=== PATIENT | male | born 1965 | race African-American/Black ===

== ENCOUNTER 2017-04-26 07:39 | Emergency (ER) | payer MEDICAID ==
[~2017-04-26] VITALS: Ht 193 cm; Wt 90.7 kg
[~2017-04-26 07:39] MED LIST: CEPHALEXIN500 MG ORAL; COUMADIN6 MG ORAL; LEVOFLOXACIN500 MG ORAL; METFORMIN HCL500 M1 ORAL
[2017-04-26] MEDS ORDERED: KENALOG 0.025%15 GM APPLIC (08:04)
[2017-04-26] MEDS ORDERED: BENADRYL ALLERG25 M1 PO (08:04)
[2017-04-26 08:15] VITALS: BP 140/88
--- NOTE | 2017-04-26 08:18 | Emergency Room Report ---
History of Present Illness General Chief Complaint: Skin Rash/Abscess Source: Patient Present Illness HPI 51-year-old male with no significant past medical history presenting with rash to left-sided back for 2-3 days. Patient states he noticed a rash 2-3 days ago has been very itchy and he has been scratching. Patient denies any new detergent, denies any mosquito bites or insect bites, denies any new clothing or material applied and his back. Patient states that he has had this rash before on his arm a long time ago. Patient denies any fever or chills. Denies any nausea or vomiting. Denies any throat swelling or shortness of breath. Allergies: Coded Allergies: No Known Allergies (Unverified , 04/26/17) Patient History Past Medical History: see triage record Past Surgical History: none Pertinent Family History: none Reviewed Nursing Documentation: PMH: Agreed, PSxH: Agreed Nursing Documentation-PMH Hx Cardiac Problems: Yes Hx Hypertension: Yes Hx Diabetes: Yes Hx Cancer: No Hx Gastrointestinal Problems: No Hx Neurological Problems: Yes - History of DVT Review of Systems All Other Systems: negative except mentioned in HPI Physical Exam Vital Signs Date Time Temp Pulse Resp B/P (MAP) Pulse Ox O2 Delivery O2 Flow Rate FiO2 04/26/17 07:52 98.2 88 16 146/87 95 Room Air Sp02 EP Interpretation: reviewed, normal General Appearance: normal inspection, well appearing, no apparent distress, alert, GCS 15, non-toxic Head: normocephalic, atraumatic Eyes: bilateral eye normal inspection, bilateral eye PERRL, bilateral eye EOMI ENT: normal ENT inspection, normal pharynx, normal voice, moist mucus membranes Neck: normal inspection, full range of motion, supple Respiratory: normal inspection, lungs clear, normal breath sounds, no respiratory distress, no retraction, no wheezing, speaking full sentences, chest symmetrical Cardiovascular #1: normal inspection, regular rate, rhythm, no edema, normal capillary refill Cardiovascular #2: 2+ radial (R), 2+ radial (L) Gastrointestinal: normal inspection, non tender, soft, non-distended, no guarding Genitourinary: no CVA tenderness Musculoskeletal: normal inspection, back normal, normal range of motion, non- tender Neurologic: normal inspection, alert, oriented x3, responsive, motor strength/ tone normal, sensory intact, normal gait, speech normal Psychiatric: normal inspection, judgement/insight normal, memory normal Skin: well hydrated, normal turgor, other - Left back, with few more than 5 x 5 cm raised dark blanching rash, with excoriation renteria. Mildly tender to palpation. No purulent drainage Medical Decision Making Diagnostic Impression: Primary Impression: Contact dermatitis ER Course 51 yo M with rash DDX: Appears to be benign dermatitis such as eczema or contact dermatitis Plan: Benadryl offered in the emergency room however patient is driving Disposition: Patient is to be discharged to home. Prescriptions given are steroid ointment and Benadryl Patient is instructed to follow up with their primary care doctor within one week for recheck of rash Strict return precautions discussed with patient such as fever, chills, worsening/severe rash, shortness of breath, throat swelling, nausea, vomiting, which may indicate severe illness. Patient verbalizes understanding and agrees with plan. Please note that this Emergency Department Report was dictated using [employer] integrity technology software, occasionally this can lead to erroneous entry secondary to interpretation by the dictation equipment Last Vital Signs Date Time Temp Pulse Resp B/P (MAP) Pulse Ox O2 Delivery O2 Flow Rate FiO2 04/26/17 07:52 98.2 88 16 146/87 95 Room Air Disposition: HOME, SELF-CARE Condition: Stable Scripts Triamcinolone Acet (Triamcinolone Acetonide) 15 Gm Cream..g. 15 GM APPLIC DAILY for 7 Days, #1 TUBE 0 Refills Prov: Ceasar Arellano M.D. 04/26/17 Diphenhydramine Hcl (BENADRYL ALLERGY) 25 Mg Tablet 25 MG PO Q6HR Y for Itching for 7 Days, #28 TAB 0 Refills Prov: Ceasar Arellano M.D. 04/26/17 Referrals: NOT CHOSEN [facility]/,REFERRING (PCP) Patient Instructions: Contact Dermatitis, [id number] Additional Instructions: Please follow up with your primary care doctor within 3 days. Please take your prescription medication as directed. Please come back to the emergency room if you are having worsening rash, throat swelling shortness of breath, or nausea or vomiting Ceasar Arellano M.D. Apr 26, 2017 08:18
== END 2017-04-26 08:15 | disposition home or self-care (01) ==
LOC: EMR 08:00
DX: L25.9 Unspecified contact dermatitis, unspecified cause (principal); I10 Essential (primary) hypertension; E11.9 Type 2 diabetes mellitus without complications
CPT/HCPCS: 99284

== ENCOUNTER 2017-04-30 07:29 | Emergency (ER) | payer MEDICAID ==
[~2017-04-30] VITALS: Ht 193 cm; Wt 90.7 kg
[~2017-04-30 07:29] MED LIST changes: +BENADRYL ALLERG25 M1 PO; +KENALOG 0.025%15 GM APPLIC
[2017-04-30 07:42] VITALS: BP 131/77
[2017-04-30] MEDS ORDERED: KEFLEX500 MG ORAL (07:51)
[2017-04-30] MEDS ORDERED: ACYCLOVIR400 MG ORAL (07:51)
--- NOTE | 2017-04-30 07:55 | Emergency Room Report ---
History of Present Illness General Chief Complaint: Skin Rash/Abscess Source: Patient Present Illness HPI Patient presents with continued rash on the left back area patient was here about 7 days ago was put on antifungal medication Reports of the discomfort still persists And the rash has not fully gone away He reports that the pain has improved significantly Denies any discharge Denies any fevers or chills The area is still somewhat puritic Allergies: Coded Allergies: No Known Allergies (Unverified , 04/26/17) Patient History Past Medical History: see triage record Pertinent Family History: none Reviewed Nursing Documentation: PMH: Agreed, PSxH: Agreed Nursing Documentation-PMH Hx Cardiac Problems: Yes Hx Hypertension: Yes Hx Diabetes: Yes Hx Cancer: No Hx Gastrointestinal Problems: No Hx Neurological Problems: Yes - History of DVT Review of Systems All Other Systems: negative except mentioned in HPI Physical Exam Vital Signs Date Time Temp Pulse Resp B/P (MAP) Pulse Ox O2 Delivery O2 Flow Rate FiO2 04/30/17 07:33 98.1 81 20 131/77 96 Room Air Sp02 EP Interpretation: reviewed, normal General Appearance: well appearing, no apparent distress Head: normocephalic, atraumatic Eyes: bilateral eye PERRL, bilateral eye EOMI ENT: hearing grossly normal, normal pharynx, TMs + canals normal, uvula midline Neck: full range of motion, supple, no meningismus, no bony tend Respiratory: chest non-tender, lungs clear, normal breath sounds Cardiovascular #1: regular rate, rhythm, no edema Gastrointestinal: soft, no mass Musculoskeletal: normal inspection Neurologic: alert, oriented x3, responsive, image assembler III-XII nml as tested Skin: other - The area of the left back area, essentially just lateral to the scapula region, in the latissimus muscle region, there are several areas of what he to be local irritation such as possible insect bite, with mild surrounding erythema, no obvious fluctuance, there is somewhat of a dermatomal pattern to this as well, raising concern of possible shingles the area stopped about the midaxillary region and does not wraparound to the chest area Lymphatic: no adenopathy Medical Decision Making Diagnostic Impression: Primary Impression: Rash and other nonspecific skin eruption Additional Impressions: insect bite zoster ER Course Clinical findings raise questions of possible insect bite with local reaction, possible early secondary infection, shingles needs to be considered as well given some of the dermatomal appearance of this. Patient is not immunocompromised does not appear septic or toxic, he will be treated initially for coverage of both differentials, I did discuss with them the importance of close followup with primary physician for dermatology referral, Last Vital Signs Date Time Temp Pulse Resp B/P (MAP) Pulse Ox O2 Delivery O2 Flow Rate FiO2 04/30/17 07:42 98.1 78 20 131/77 96 Room Air Status: unchanged Disposition: HOME, SELF-CARE Condition: Stable Scripts Acyclovir* (ACYCLOVIR*) 400 Mg Tablet 400 MG ORAL FIVE TIMES A DAY for 5 Days, TAB Prov: CHRIS AMBROCIO D.O. 04/30/17 Cephalexin* (KEFLEX*) 500 Mg Capsule 500 MG ORAL Q6H, #28 CAP 0 Refills Prov: CHRIS AMBROCIO D.O. 04/30/17 Referrals: NON PHYSICIAN (PCP) Patient Instructions: Rash, Shingles, [id number], Insect Bite, [id number] Additional Instructions: Patient is provided with the discharge instructions notified to follow up with primary doctor in the next 2-3 days otherwise return to the er with any worsening symptoms. Please note that this report is being documented using [employer] technology. This can lead to erroneous entry secondary to incorrect interpretation by the dictating instrument. CHRIS AMBROCIO D.O. Apr 30, 2017 07:55
[2017-04-30 08:02] VITALS: BP 131/77
== END 2017-04-30 08:03 | disposition home or self-care (01) ==
LOC: EMR 07:42
DX: S20.462A Insect bite (nonvenomous) of left back wall of thorax, initial encounter (principal); B02.9 Zoster without complications; R21 Rash and other nonspecific skin eruption; E11.9 Type 2 diabetes mellitus without complications; I10 Essential (primary) hypertension; W57.XXXA Bitten or stung by nonvenomous insect and other nonvenomous arthropods, initial encounter; Y92.9 Unspecified place or not applicable; Z86.718 Personal history of other venous thrombosis and embolism
CPT/HCPCS: 99284

== ENCOUNTER 2017-10-08 08:35 | Emergency (ER) | payer MEDICAID ==
[~2017-10-08] VITALS: Ht 193 cm; Wt 90.7 kg
[~2017-10-08 08:35] MED LIST changes: +ACYCLOVIR400 MG ORAL; +KEFLEX500 MG ORAL
[2017-10-08] MEDS ORDERED: UNOBMED (08:46)
[2017-10-08] MEDS ORDERED: HYDROCORTISONE-30 GM TOPIC (08:58)
[2017-10-08] MEDS ORDERED: BENADRYL25 M3 PO (08:58)
[2017-10-08 09:11] VITALS: BP 149/96
--- NOTE | 2017-10-08 09:18 | Emergency Room Report ---
History of Present Illness General Chief Complaint: Skin Rash/Abscess Source: Patient Present Illness HPI 51-year-old male, no significant past medical history, presenting with insect bites. Patient states that over the weekend, he was visiting a friend, certificates of his bilateral arms and back.. Itchy. He has not taken any medications. No purulent drainage no fever no chills Allergies: Coded Allergies: No Known Allergies (Unverified , 04/26/17) Patient History Past Medical History: see triage record Past Surgical History: none Pertinent Family History: none Reviewed Nursing Documentation: PMH: Agreed, PSxH: Agreed Nursing Documentation-PMH Hx Cardiac Problems: Yes Hx Hypertension: Yes Hx Diabetes: Yes Hx Cancer: No Hx Gastrointestinal Problems: No Hx Neurological Problems: Yes - History of DVT to BLE. Review of Systems All Other Systems: negative except mentioned in HPI Physical Exam Vital Signs Date Time Temp Pulse Resp B/P (MAP) Pulse Ox O2 Delivery O2 Flow Rate FiO2 10/08/17 08:41 98.2 90 17 186/97 97 Room Air 98.2 Sp02 EP Interpretation: reviewed, normal General Appearance: normal inspection, well appearing, no apparent distress, alert, GCS 15, non-toxic Head: normocephalic, atraumatic Eyes: bilateral eye normal inspection, bilateral eye PERRL, bilateral eye EOMI ENT: normal ENT inspection, normal pharynx, normal voice, moist mucus membranes Neck: normal inspection, full range of motion, supple Respiratory: normal inspection, lungs clear, normal breath sounds, no respiratory distress, no retraction, no wheezing, speaking full sentences, chest symmetrical Cardiovascular #1: normal inspection, regular rate, rhythm, normal capillary refill Cardiovascular #2: 2+ radial (R), 2+ radial (L) Gastrointestinal: normal inspection, non tender, soft, non-distended, no guarding Musculoskeletal: normal inspection, back normal, normal range of motion, non- tender Neurologic: normal inspection, alert, oriented x3, responsive, motor strength/ tone normal, sensory intact, normal gait, speech normal Psychiatric: normal inspection, judgement/insight normal, memory normal Skin: other - Bilateral upper arms with 1 insect bite each arm, does not appear to be infected, in fact there are 2 insect bites. Nontender, excoriation renteria noted, no signs of cellulitis Medical Decision Making Diagnostic Impression: Primary Impression: Insect bites ER Course 51-year-old male with insect bites DDX: Insect bites, did not appear to be infected Plan: None ER course: Patient has remained stable during ED stay. Disposition: Patient is to be discharged to home. Prescriptions given are cortisone cream and Benadryl Patient is instructed to follow up with their primary care doctor within 5 days. Please note that this Emergency Department Report was dictated using [employer] machine buffer technology software, occasionally this can lead to erroneous entry secondary to interpretation by the dictation equipment Last Vital Signs Date Time Temp Pulse Resp B/P (MAP) Pulse Ox O2 Delivery O2 Flow Rate FiO2 10/08/17 09:11 98.0 83 18 149/96 97 Room Air 98.0 Disposition: HOME, SELF-CARE Condition: Stable Scripts Hydrocortisone/Aloe Vera 1%* (HYDROCORTISONE-ALOE 1% CREAM*) Y Cr 1 APPLIC TOPIC Q6H Y for Itching, #30 GM 0 Refills Prov: Ceasar Arellano M.D. 10/08/17 Diphenhydramine HCl (Benadryl) 25 Mg Capsule 25 MG PO Q6HR, #30 CAP Prov: Ceasar Arellano M.D. 10/08/17 Patient Instructions: Insect Bite, [id number] Ceasar Arellano M.D. Oct 08, 2017 09:18
== END 2017-10-08 09:12 | disposition home or self-care (01) ==
LOC: EMR 08:56
DX: S40.862A Insect bite (nonvenomous) of left upper arm, initial encounter (principal); S40.861A Insect bite (nonvenomous) of right upper arm, initial encounter; W57.XXXA Bitten or stung by nonvenomous insect and other nonvenomous arthropods, initial encounter; Y92.9 Unspecified place or not applicable; I10 Essential (primary) hypertension; E11.9 Type 2 diabetes mellitus without complications
CPT/HCPCS: 99283

== ENCOUNTER 2017-10-17 10:29 | Emergency (ER) | payer MEDICAID ==
[~2017-10-17] VITALS: Ht 193 cm; Wt 90.7 kg
[~2017-10-17 10:29] MED LIST changes: +BENADRYL25 M3 PO; +HYDROCORTISONE-30 GM TOPIC; +UNOBMED
[2017-10-17] MEDS ORDERED: NKM (10:57)
[2017-10-17 11:06] VITALS: BP 130/86
[2017-10-17] MEDS ORDERED: Tetanus/Diptheria/Pertussis Vaccine 0.5ml Syr IM ONE (11:45)
[2017-10-17] MEDS ORDERED: Bacitracin Oint UD TOPIC ONE (11:45)
--- NOTE | 2017-10-17 12:40 | Emergency Room Report ---
History of Present Illness General Chief Complaint: Skin Rash/Abscess Source: Patient Present Illness HPI Patient with several days of lesions on legs. Was given hydrocortisone and benadryl. Feels hydrocortisone not helping. Still with itching. No fever, drainage. Was visiting friend and not certain what type of insects bit him. States tetanus UTD. H/O DVTs on coumadin. States INR being followed. No bleeding or calf tenderness. No edema. No hemoptysis, melena. H/O diabetes. States glucose well controlled. H/O HTN, this has been well controlled. No chest pain, weakness. Denies HIV. Allergies: Coded Allergies: No Known Allergies (Unverified , 04/26/17) Patient History Past Medical History: see triage record Social History: Denies: smoking Reviewed Nursing Documentation: PMH: Agreed, PSxH: Agreed Nursing Documentation-PMH Past Medical History: No History, Except For Hx Cardiac Problems: Yes Hx Hypertension: Yes Hx Diabetes: Yes Hx Cancer: No Hx Gastrointestinal Problems: No Hx Neurological Problems: Yes - History of DVT to BLE. Review of Systems All Other Systems: negative except mentioned in HPI Physical Exam Vital Signs Date Time Temp Pulse Resp B/P (MAP) Pulse Ox O2 Delivery O2 Flow Rate FiO2 10/17/17 10:52 97.8 90 15 130/86 95 Room Air 97.9 Sp02 EP Interpretation: reviewed, normal General Appearance: well appearing, no apparent distress Head: normocephalic, atraumatic Eyes: bilateral eye normal inspection, bilateral eye PERRL ENT: hearing grossly normal, normal voice, moist mucus membranes Neck: full range of motion, supple Respiratory: no respiratory distress, speaking full sentences Cardiovascular #1: regular rate, rhythm, no edema Cardiovascular #2: 2+ radial (L) Gastrointestinal: normal inspection, non tender, scaphoid Musculoskeletal: digits/nails normal, gait/station normal, normal range of motion, no calf tenderness, pelvis stable Neurologic: alert, normal gait, grossly normal Psychiatric: mood/affect normal Skin: other - punctate lesions back of legs. No erythema, fluctuance or drainage, abrasions - L lateral lower leg Medical Decision Making Diagnostic Impression: Primary Impression: Bug bites Qualified Codes: W57.XXXD - Bitten or stung by nonvenomous insect and other nonvenomous arthropods, subsequent encounter ER Course Patient re-presents with bites. No sig erythema. Consider diabetic related rash. Not fungal. The lesions appear to be healing. Last April had slowly healing rash. On back was considered Zoster. This rash is bilateral. In addition, had been seen prior for possible contact dermatitis. Contd treatment with stronger steroids and topical antibiotics. He also has benadryl. If not improving, consider lab evaluation (however, these lesions appear not infected and improving). Patient stable for outpatient observation and treatment. Last Vital Signs Date Time Temp Pulse Resp B/P (MAP) Pulse Ox O2 Delivery O2 Flow Rate FiO2 10/17/17 12:52 98.5 91 16 137/85 95 Room Air Status: improved Disposition: HOME, SELF-CARE Condition: Improved Scripts Bacitracin (Bacitracin) 28.4 Gm Oint...g. 1 APPLIC TOPIC BID, #20 GM Prov: Ward Rouse M.D. 10/17/17 Triamcinolone Acet (Triamcinolone Acetonide) 15 Gm Cream..g. 1 APPLIC APPLIC BID, #15 GM Prov: Ward Rouse M.D. 10/17/17 Referrals: [facility],REF (PCP) Ward Rouse M.D. Oct 17, 2017 12:40
[2017-10-17] MEDS ORDERED: BACITRACIN15 GM TOPIC (12:43)
[2017-10-17] MEDS ORDERED: KENALOG 0.025%15 GM APPLIC (12:43)
[2017-10-17 12:52] VITALS: BP 137/85
== END 2017-10-17 12:54 | disposition home or self-care (01) ==
LOC: EMR 11:17
DX: S81.852A Open bite, left lower leg, initial encounter (principal); S81.851A Open bite, right lower leg, initial encounter; W57.XXXA Bitten or stung by nonvenomous insect and other nonvenomous arthropods, initial encounter; Y92.9 Unspecified place or not applicable; Z23 Encounter for immunization; I10 Essential (primary) hypertension; E11.9 Type 2 diabetes mellitus without complications; Z86.718 Personal history of other venous thrombosis and embolism; Z79.01 Long term (current) use of anticoagulants
CPT/HCPCS: 90471; 90715; 99283

== ENCOUNTER 2019-07-10 12:24 | Emergency (ER) | payer MEDICAID ==
[~2019-07-10] VITALS: Ht 193 cm; Wt 90.7 kg
[~2019-07-10 12:24] MED LIST changes: +BACITRACIN15 GM TOPIC; +NKM
[2019-07-10] MEDS ORDERED: ASPIR 8181 MG ORAL (12:55)
[2019-07-10 12:58] VITALS: BP 149/84
--- NOTE | 2019-07-10 12:58 | NUR ---
ED Nurse Note: A/OX4. REPORTS OF HAVING LEFT RIB PAIN WITHOUT SOB S/P SLIP AND FALL IN THE BATHROOM. NO TRUAMA NOTED. ABLE TO ANSWER QUESTIONS WITH FULL SENTENCES.
[2019-07-10] MEDS ORDERED: Omnipaque-300 100ml vial INJ PRN (13:15)
[2019-07-10 13:36] LABS: BASOPHILS % (AUTO) 0.9 % (0.0-2.0); HEMATOCRIT 53.8 % (42.0-52.0); HEMOGLOBIN 17.4 G/DL (14.2-18.0); LYMPHOCYTES % (AUTO) 18.7 % (20.0-45.0); MEAN CORPUSCULAR VOLUME 93 FL (80-99); MONOCYTES % (AUTO) 13.2 % (1.0-10.0); NEUTROPHILS % (AUTO) 65.3 % (45.0-75.0); PLATELET COUNT 163 K/UL (150-450); RED BLOOD COUNT 5.81 M/UL (4.70-6.10); WHITE BLOOD COUNT 8.8 K/UL (4.8-10.8)
[2019-07-10 13:53] LABS: ALANINE AMINOTRANSFERASE 93 U/L (12-78); ALBUMIN/GLOBULIN RATIO 0.8 (1.0-2.7); ALKALINE PHOSPHATASE 81 U/L (46-116); ANION GAP 5 mmol/L (5-15); ASPARTATE AMINO TRANSFERASE 130 U/L (15-37); BLOOD UREA NITROGEN 7 mg/dL (7-18); CALCIUM 9.6 MG/DL (8.5-10.1); CARBON DIOXIDE 35 MMOL/L (21-32); CHLORIDE 100 MMOL/L (98-107); CREATININE 0.9 MG/DL (0.55-1.30); POTASSIUM 4.2 MMOL/L (3.5-5.1); SODIUM 140 MMOL/L (136-145)
--- NOTE | 2019-07-10 16:20 | Diagnostic Imaging Report ---
CLINICAL INDICATION:Left lower rib and left upper quadrant abdominal pain, shortness of breath, status post slip and fall in the bathroom TECHNIQUE: No oral contrast, per emergency room physician request. IV administration nonionic contrast. Multiphasic spiral acquisitions obtained through the chest, abdomen, and pelvis. Multiplanar reconstructions were generated. Total dose length product 1888 mGycm. CTDIvol(s) 49, 104, 16, 16 mGy. Radiation dose was minimized using automated exposure control COMPARISON: Chest compared to chest CT dated 04/10/2016. No comparison abdomen pelvis CT is FINDINGS Chest: The bones are unremarkable. No evidence of rib or other fracture demonstrated. No evidence of soft tissue contusion. There is minimal linear scarring or atelectasis at the left lung base. Lungs and pleural spaces are otherwise clear. No infiltrates, effusions, masses, or nodules. No evidence of contusion or pneumothorax. The thyroid is unremarkable. The heart size is normal. No pericardial effusion. The esophagus is unremarkable. No mediastinal or hilar mass or adenopathy. Abdomen pelvis: The bones are unremarkable. No evidence of fracture or dislocation. No evidence of abdominal wall contusion. No evidence of intraperitoneal hematoma. The liver is hypoattenuating, consistent with fatty change. No focal abnormality. The gallbladder, bile ducts, pancreas, spleen, adrenals, kidneys are unremarkable. No pelvic mass or adenopathy. No retroperitoneal or mesenteric mass or adenopathy. Incidentally noted is a retroaortic left renal vein There are colonic diverticula. There is evidence of mild circular muscle hypertrophy of the sigmoid. No evidence of diverticulitis. The appendix is normal. No small bowel distention. No free or loculated intraperitoneal gas or fluid is evident. The stomach and duodenum are unremarkable. IMPRESSION: No acute abnormality. No evidence of significant bony, soft tissue, or solid organ injury Fatty liver Colonic diverticulosis Other findings as noted, including retroaortic left renal vein, minimal left basilar pulmonary atelectatic changes The CT scanner at [facility] is accredited by the [employer] and the scans are performed using protocols designed to limit radiation exposure to as low as reasonably achievable to attain images of sufficient resolution adequate for diagnostic evaluation.
--- NOTE | 2019-07-10 16:24 | Emergency Room Report ---
History of Present Illness General Chief Complaint: Pain Source: Patient Present Illness HPI 53-year-old male with history of heavy tobacco smoker no other significant past medical history here complaining pain left side of chest after falling this morning when trying to get a shower. Patient is afraid that he might of broken his ribs, complains of shortness of breath when taking deep breaths, also complains of left-sided abdominal pain after fall. Denies generalized chest pain, palpitation, head injury, loss of consciousness, dizziness, nausea vomiting. Has not taken medication for symptom relief. Patient is sitting comfortably with stable vital signs. Minimal bony tenderness noted in left lower ribs, abdomen appears to be distended however patient denies any history of alcohol intake. Allergies: Coded Allergies: No Known Allergies (Unverified , 04/26/17) Patient History Past Medical History: see triage record Past Surgical History: unable to obtain Pertinent Family History: none Social History: Reports: smoking Immunizations: UTD Reviewed Nursing Documentation: PMH: Agreed; PSxH: Agreed Nursing Documentation-PMH Past Medical History: No History, Except For Hx Cardiac Problems: No Hx Hypertension: Yes Hx Pacemaker: No Hx Asthma: No Hx COPD: No Hx Diabetes: Yes Hx Cancer: No Hx Gastrointestinal Problems: No Hx Dialysis: No History Of Psychiatric Problem: No Hx Neurological Problems: No Hx Cerebrovascular Accident: No Hx Seizures: No Review of Systems All Other Systems: negative except mentioned in HPI Physical Exam Vital Signs Date Time Temp Pulse Resp B/P (MAP) Pulse Ox O2 Delivery O2 Flow Rate FiO2 07/10/19 12:50 98.4 78 16 149/84 (105) 94 Room Air Sp02 EP Interpretation: reviewed, normal General Appearance: no apparent distress, alert, GCS 15, non-toxic Head: normocephalic, atraumatic Eyes: bilateral eye normal inspection, bilateral eye PERRL ENT: hearing grossly normal, normal pharynx, no angioedema, normal voice, TMs + canals normal Neck: full range of motion, supple, thyroid normal, supple/symm/no masses Respiratory: chest non-tender, lungs clear, normal breath sounds, no rhonchi, no respiratory distress, no retraction, speaking full sentences Cardiovascular #1: regular rate, rhythm, no edema, no murmur Gastrointestinal: normal bowel sounds, non tender, soft, no guarding, no rebound, distended Rectal: deferred Musculoskeletal: back normal, normal range of motion, digits/nails normal, no calf tenderness, pelvis stable, gait/station normal, tender - left 11-12 rib Neurologic: alert, motor strength/tone normal, oriented x3, sensory intact, responsive, speech normal Psychiatric: judgement/insight normal, memory normal, mood/affect normal, no suicidal/homicidal ideation Skin: no rash, other - no eccymosis Lymphatic: no adenopathy Medical Decision Making PA Attestation All my diagnosis and treatment plans were reviewed ad discussed with my supervising physician Dr. Montalvo Diagnostic Impression: Primary Impression: Contusion of chest Additional Impressions: Diverticulosis Fatty liver ER Course 53-year-old male with history of heavy tobacco smoker no other significant past medical history here complaining pain left side of chest after falling this morning when trying to get a shower. Patient is afraid that he might of broken his ribs, complains of shortness of breath when taking deep breaths, also complains of left-sided abdominal pain after fall. Denies generalized chest pain, palpitation, head injury, loss of consciousness, dizziness, nausea vomiting. Has not taken medication for symptom relief. Patient is sitting comfortably with stable vital signs. Minimal bony tenderness noted in left lower ribs, abdomen appears to be distended however patient denies any history of alcohol intake. Ddx considered but are not limited to: Rib fracture, chest contusion, pneumothorax Vital signs: are WNL, pt. is afebrile H&PE are most consistent with: Chest contusion, incidental finding of diverticulosis ORDERS: Chest and abdominal CT scan with contrast, CBC, CMP, ibuprofen, Robaxin , lidocaine patch ED INTERVENTIONS: Toradol, Robaxin DISCHARGE: At this time pt. is stable for d/c to home. Will provide printed patient care instructions, and any necessary prescriptions. Care plan and follow up instructions have been discussed with the patient prior to discharge. Follow-up with your primary care provider, take medication as directed, if worsening symptoms return to the emergency room CT/MRI/US Diagnostic Results CT/MRI/US Diagnostic Results : Imaging Test Ordered: CT chest abdomen with pelvis with contrast Impression Incidental finding of diverticulosis, no rib fracture or pneumothorax noted Last Vital Signs Date Time Temp Pulse Resp B/P (MAP) Pulse Ox O2 Delivery O2 Flow Rate FiO2 07/10/19 12:58 98.4 82 16 149/84 94 Room Air Disposition: HOME, SELF-CARE Condition: Stable Scripts Methocarbamol* (ROBAXIN-500*) 500 Mg Tablet 500 MG ORAL TID PRN for For Pain, #15 TAB 0 Refills Prov: Kierra Ackerman 07/10/19 Lidocaine Patch* (Lidoderm Patch*) 1 Each Adh..patch 1 PATCH TOPIC DAILY, #7 PATCH 0 Refills Patch(es) may remain in place for up to 12 hours in any 24-hour period. Prov: Kierra Ackerman 07/10/19 Ibuprofen (Ibu) 800 Mg Tablet 800 MG PO TID, #30 TAB Prov: Kierra Ackerman 07/10/19 Referrals: [facility],REF (PCP) Patient Instructions: Chest Contusion, [id number], Diverticulosis Additional Instructions: Follow-up with your primary care provider, if worsening symptoms return to emergency room. Avoid strenuous activity with the affected side. Incidental finding of diverticulosis follow-up with your primary care physician in this regard. Increase oral hydration Kierra Ackerman Jul 10, 2019 16:24
[2019-07-10] MEDS ORDERED: IBU800 MG PO (16:26)
[2019-07-10] MEDS ORDERED: LIDODERM700 M1 TOPIC (16:26)
[2019-07-10] MEDS ORDERED: ROBAXIN-500MG ORAL (16:26)
[2019-07-10 16:37] VITALS: BP 149/84
--- NOTE | 2019-07-10 16:37 | NUR ---
ED Nurse Note: Pt cleared by health care Provider for discharge. DC instructions/prescription was given and explained to pt and verbalized understanding of teachings. All medical deviecs such as ID band and IV removed. Pt is AAO x4, ambulatory and left with all personal belongings.
== END 2019-07-10 16:37 | disposition home or self-care (01) ==
LOC: EMR 13:02
DX: S20.219A Contusion of unspecified front wall of thorax, initial encounter (principal); K57.90 Diverticulosis of intestine, part unspecified, without perforation or abscess without bleeding; K76.0 Fatty (change of) liver, not elsewhere classified; W18.2XXA Fall in (into) shower or empty bathtub, initial encounter; Y93.E1 Activity, personal bathing and showering; Y92.012 Bathroom of single-family (private) house as the place of occurrence of the external cause; I10 Essential (primary) hypertension; E11.9 Type 2 diabetes mellitus without complications
CPT/HCPCS: 36415; 71260; 74177; 80053; 85025; Q9967; Z7502; 99284